=== PATIENT | female | born 1995 | race American Indian/Alaskan Native ===

== ENCOUNTER 2019-08-29 23:41 | Emergency (ER) | payer SELFPAY ==
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
[2019-08-30] MEDS ORDERED: LORazepam 2 MG/ML VIAL IM PRN (00:46)
[2019-08-30] MEDS ORDERED: HALOPERIDOL LACTATE 5 MG/1 ML INJ IM PRN (00:46)
[2019-08-30] MEDS ORDERED: diphenhydrAMINE 50 MG/ML VIAL IM PRN (00:46)
[2019-08-30 01:38] LABS: Basophils % (Auto) 0.3 % (0.0-1.8); Eosinophils % (Auto) 0.4 % (0.0-4.3); Hematocrit 42.6 % (30.3-42.9); Hemoglobin 13.9 gm/dl (10.1-14.3); Lymphocytes # (Auto) 3.6 K/mm3 (1.2-5.4); Lymphocytes % (Auto) 35.1 % (13.4-35.0); Mean Corpuscular HGB Conc 33 % (30-34); Mean Corpuscular Volume 91 fl (79-97); Monocytes # (Auto) 0.6 K/mm3 (0.0-0.8); Monocytes % (Auto) 5.4 % (0.0-7.3); Platelet Count 270 K/mm3 (140-440); Red Blood Count 4.69 M/mm3 (3.65-5.03); Red Cell Distribution Width 12.7 % (13.2-15.2)
[2019-08-30 02:00] LABS: BUN/Creatinine Ratio 23; Blood Urea Nitrogen 16 mg/dL (7-17); Calcium 9.9 mg/dL (8.4-10.2); Hemolysis Index 15
[2019-08-30 06:55] LABS: Bilirubin,Urine NEG (Negative); Blood,Urine NEG (Negative); Color,Urine Yellow (Yellow); Hyaline Casts,Urine 3 /LPF; Mucus,Urine 3+ /HPF; Protein,Urine <15 mg/dL mg/dL (Negative); Urobilinogen,Urine < 2.0 mg/dL (<2.0)
[2019-08-30 06:59] LABS: Amphetamine Screen,Urine PRESUMPTIVE NEGATIVE; Benzodiazepines Screen,Urine PRESUMPTIVE NEGATIVE; Cocaine Screen,Urine PRESUMPTIVE NEGATIVE; Methadone Screen,Urine PRESUMPTIVE NEGATIVE; Opiate Screen,Urine PRESUMPTIVE NEGATIVE
[2019-08-30 07:11] LABS: Cannabinoid Screen,Urine PRESUMPTIVE POSITIVE
[2019-08-30 08:49] VITALS: BP 95/66
== END 2019-08-30 16:54 ==
LOC: ED 23:41
DX: R45.851 Suicidal ideations (principal)
CPT/HCPCS: 36415; 80048; 80307; 81001; 84703; 85025; 96372; 99285; J1630; J2060; 80320; G0480